=== PATIENT | male | born 1980 | race Caucasian/White ===

== ENCOUNTER 2017-08-13 06:05 | Day surgery (SDC) | payer OTHER ==
[~2017-08-13] VITALS: Ht 198.1 cm; Wt 136.1 kg
[~2017-08-13 06:05] MED LIST: BETA.05TCA TP; BUPR100ER PO; CEPH500 PO; CIPR500 PO; CRUTCH3 USE; CYCL10 PO; DIPH12.5EL; DOCU100 PO; HEMOTC PR; HYDACE25S PR; HYDACE5 PO; HYDCOR2.5C PR; LIND1TL TOP; MED MARIJUANA; META800 PO; METPRE4DP PO; METR500 PO; MULVITA PO; NAPR500 PO; NAPR550 PO; OMEP10ER PO; OMEP20ER PO; OXYACE5T PO; PRED10 PO; PROACE100 PO; Pepcid40 MG PO; Prednisone20 MG PO; RXOXYACE PO; TRIA80TC TOP; VITAMENS; [UNRECOGNIZED DRUG - REMARK]
== END 2017-08-13 09:50 | disposition home or self-care (01) ==
LOC: ORSCSDS 06:05
PROVIDERS: Orthopaedic Surgery
PROC: 0SBC4ZZ Excision of Right Knee Joint, Percutaneous Endoscopic Approach (ICD-10-PCS; principal; 2017-08-13 07:30)
PROC: 0SQC4ZZ Repair Right Knee Joint, Percutaneous Endoscopic Approach (ICD-10-PCS; principal; 2017-08-13 07:30)
DX: S83.281A Other tear of lateral meniscus, current injury, right knee, initial encounter (principal); M94.261 Chondromalacia, right knee; Z87.891 Personal history of nicotine dependence; E66.9 Obesity, unspecified; Z68.34 Body mass index [BMI] 34.0-34.9, adult
CPT/HCPCS: J0171; J0690; J1100; J1885; J2250; J2270; J2405; J2765; J3010; J7120

== ENCOUNTER 2017-10-13 14:15 | Emergency (ER) | payer OTHER ==
[~2017-10-13] VITALS: Ht 198.1 cm; Wt 136.1 kg
[2017-10-13] MEDS ORDERED: Sudogest60 MG PO (14:48)
[2017-10-13] MEDS ORDERED: Amoxicillin875 MG PO (14:48)
== END 2017-10-13 15:00 | disposition home or self-care (01) ==
LOC: ER 14:15
DX: J32.9 Chronic sinusitis, unspecified (principal); Z91.013 Allergy to seafood; K21.9 Gastro-esophageal reflux disease without esophagitis; F17.290 Nicotine dependence, other tobacco product, uncomplicated
CPT/HCPCS: 99283; J1100

== ENCOUNTER 2017-10-22 23:02 | Emergency (ER) | payer OTHER ==
[~2017-10-22] VITALS: Ht 198.1 cm; Wt 136.1 kg
[~2017-10-22 23:02] MED LIST changes: +Amoxicillin875 MG PO; +Sudogest60 MG PO
[2017-10-22 23:49] LABS: BASOPHILS ABSOLUTE AUTO 0.08 K/mm3 (0.00-0.23); BASOPHILS PERCENT AUTO 1 % (0-2); EOSINOPHILS ABSOLUTE AUTO 0.28 K/mm3 (0.00-0.68); EOSINOPHILS PERCENT AUTO 3 % (0-6); Hematocrit 39.6 % (37.0-53.0); Hemoglobin 13.2 g/dL (13.5-17.5); IMMATURE GRAN ABSOLUTE AUTO 0.03 K/mm3 (0.00-0.10); IMMATURE GRAN PERCENT AUTO 0 % (0-1); LYMPHOCYTES ABSOLUTE AUTO 2.86 K/mm3 (0.84-5.20); LYMPHOCYTES PERCENT AUTO 29 % (21-46); MONOCYTES PERCENT AUTO 8 % (4-13); Mean Corpuscular HGB 29.9 pg (26.0-34.0); Mean Corpuscular HGB Conc 33.3 g/dL (31.5-36.5); Mean Corpuscular Volume 90 fL (80-100); Mean Platelet Volume 9.7 fL (9.1-12.4); NEUTROPHILS ABSOLUTE AUTO 5.68 K/mm3 (1.96-9.15); NEUTROPHILS PERCENT AUTO 58 % (41-73); Platelet Count 234 K/mm3 (150-400); RDW Coefficient Variation 12.9 % (11.7-14.2); RDW Standard Deviation 42.8 fL (35.1-46.3); Red Blood Cell Count 4.42 M/mm3 (4.30-5.90); White Blood Cell Count 9.73 K/mm3 (4.00-11.30)
[2017-10-23 00:05] LABS: Alanine Aminotransfer (ALT/SGP 51 U/L (12-78); Albumin, Blood 3.7 g/dL (3.4-5.0); Albumin/Globulin Ratio 1.1 (0.8-1.8); Alk Phos 81 U/L (50-136); Anion Gap 9 mmol/L (6-16); Aspartate Aminotrans (AST/SGOT 26 U/L (12-37); Bilirubin, Total 0.4 mg/dL (0.1-1.0); Blood Urea Nitrogen 14 mg/dL (8-24); Bun/Creatinine Ratio 14.5 (12.0-20.0); CO2, Blood 25 mmol/L (21-32); Calcium, Blood 8.3 mg/dL (8.5-10.1); Chloride, Blood 107 mmol/L (98-108); Creatinine, Blood 0.97 mg/dL (0.60-1.20); Globulin, Blood 3.5 g/dL (2.2-4.0); Glomerular Filtration Rate >60 (60-); Glucose, Blood 90 mg/dL (70-99); Sodium, Blood 141 mmol/L (136-145); Total Protein, Blood 7.2 g/dL (6.4-8.2)
[2017-10-23] MEDS ORDERED: CEPH500 PO (00:20)
== END 2017-10-23 00:32 | disposition home or self-care (01) ==
LOC: ER 23:02
PROVIDERS: Emergency Medicine
DX: L03.116 Cellulitis of left lower limb (principal); Z91.013 Allergy to seafood; Z79.2 Long term (current) use of antibiotics; Z87.891 Personal history of nicotine dependence
CPT/HCPCS: 36415; 80053; 85025; 99283

== ENCOUNTER 2017-10-27 10:10 | Emergency (ER) | payer OTHER ==
[~2017-10-27] VITALS: Ht 198.1 cm; Wt 136.1 kg
[2017-10-27] MEDS ORDERED: Vibramycin100 MG PO (10:41)
== END 2017-10-27 10:49 | disposition home or self-care (01) ==
LOC: ER 10:10
DX: J01.90 Acute sinusitis, unspecified (principal); B96.89 Other specified bacterial agents as the cause of diseases classified elsewhere; Z91.013 Allergy to seafood; Z79.2 Long term (current) use of antibiotics; Z87.891 Personal history of nicotine dependence
CPT/HCPCS: 99282

== ENCOUNTER 2017-12-01 19:35 | Emergency (ER) | payer OTHER ==
[~2017-12-01] VITALS: Ht 198.1 cm; Wt 136.1 kg
[~2017-12-01 19:35] MED LIST changes: +Vibramycin100 MG PO
[2017-12-01] MEDS ORDERED: Vistaril25 MG PO (21:18)
== END 2017-12-01 21:31 | disposition home or self-care (01) ==
LOC: ER 19:35
DX: F41.9 Anxiety disorder, unspecified (principal); F43.9 Reaction to severe stress, unspecified; Z91.013 Allergy to seafood; Z87.891 Personal history of nicotine dependence
CPT/HCPCS: 99283

== ENCOUNTER 2019-01-30 17:48 | Emergency (ER) | payer OTHER ==
[~2019-01-30] VITALS: Ht 195.6 cm; Wt 108.9 kg
[~2019-01-30 17:48] MED LIST changes: +Vistaril25 MG PO
[2019-01-30] MEDS ORDERED: MUPIROCIN1 GM TOP (18:56)
== END 2019-01-30 19:18 | disposition home or self-care (01) ==
LOC: ER 17:48
DX: T25.222A Burn of second degree of left foot, initial encounter (principal); T25.221A Burn of second degree of right foot, initial encounter; T31.0 Burns involving less than 10% of body surface; L56.8 Other specified acute skin changes due to ultraviolet radiation; X58.XXXA Exposure to other specified factors, initial encounter; Z91.013 Allergy to seafood; F31.9 Bipolar disorder, unspecified; Z87.891 Personal history of nicotine dependence
CPT/HCPCS: 99283

== ENCOUNTER 2019-02-05 14:46 | Emergency (ER) | payer OTHER ==
[~2019-02-05] VITALS: Ht 195.6 cm; Wt 131.5 kg
[~2019-02-05 14:46] MED LIST changes: +MUPIROCIN1 GM TOP
[2019-02-05 15:34] LABS: BASOPHILS ABSOLUTE AUTO 0.06 K/mm3 (0.00-0.23); BASOPHILS PERCENT AUTO 1 % (0-2); EOSINOPHILS ABSOLUTE AUTO 0.16 K/mm3 (0.00-0.68); EOSINOPHILS PERCENT AUTO 2 % (0-6); Hematocrit 39.7 % (37.0-53.0); Hemoglobin 13.3 g/dL (13.5-17.5); IMMATURE GRAN ABSOLUTE AUTO 0.01 K/mm3 (0.00-0.10); IMMATURE GRAN PERCENT AUTO 0 % (0-1); LYMPHOCYTES ABSOLUTE AUTO 2.54 K/mm3 (0.84-5.20); LYMPHOCYTES PERCENT AUTO 30 % (21-46); MONOCYTES ABSOLUTE AUTO 0.54 K/mm3 (0.16-1.47); MONOCYTES PERCENT AUTO 6 % (4-13); Mean Corpuscular HGB 30.5 pg (26.0-34.0); Mean Corpuscular HGB Conc 33.5 g/dL (31.5-36.5); Mean Corpuscular Volume 91 fL (80-100); Mean Platelet Volume 9.9 fL (9.1-12.4); NEUTROPHILS ABSOLUTE AUTO 5.11 K/mm3 (1.96-9.15); NEUTROPHILS PERCENT AUTO 61 % (41-73); Platelet Count 216 K/mm3 (150-400); RDW Coefficient Variation 12.8 % (11.7-14.2); RDW Standard Deviation 42.8 fL (35.1-46.3); Red Blood Cell Count 4.36 M/mm3 (4.30-5.90); White Blood Cell Count 8.42 K/mm3 (4.00-11.30)
[2019-02-05 15:54] LABS: Alanine Aminotransfer (ALT/SGP 32 U/L (12-78); Albumin, Blood 3.5 g/dL (3.4-5.0); Albumin/Globulin Ratio 1.1 (0.8-1.8); Alk Phos 69 U/L (50-136); Anion Gap 6 mmol/L (6-16); Aspartate Aminotrans (AST/SGOT 22 U/L (12-37); Bilirubin, Total 0.6 mg/dL (0.1-1.0); Blood Urea Nitrogen 17 mg/dL (8-24); CO2, Blood 27 mmol/L (21-32); Calcium, Blood 8.3 mg/dL (8.5-10.1); Chloride, Blood 108 mmol/L (98-108); Globulin, Blood 3.3 g/dL (2.2-4.0); Glomerular Filtration Rate >60 (60-); Glucose, Blood 96 mg/dL (70-99); Potassium, Blood 3.7 mmol/L (3.5-5.5); Sodium, Blood 141 mmol/L (136-145); Total Protein, Blood 6.8 g/dL (6.4-8.2)
[2019-02-05 16:24] LABS: Source, Urine Clean Catch
[2019-02-05 16:26] LABS: Bilirubin, Urine Neg (Neg); Blood, Urine Neg (Neg); Glucose Qualitative, Urine Neg (Neg); Ketones, Urine Neg (Neg); Leukocyte Esterase, Urine Neg (Neg); Nitrite, Urine Neg (Neg); Protein, Urine 1+ (Neg); Specific Gravity, Urine 1.025 (1.003-1.022); Urobilinogen, Urine NORM (Normal)
[2019-02-05 16:32] LABS: Appearance, Urine Clear (Clear); Color, Urine Yellow (P-Yellow)
[2019-02-05] MEDS ORDERED: Keflex500 MG PO (16:45)
[2019-02-05] MEDS ORDERED: Norco 5-325 Ta1 EACH PO (16:45)
== END 2019-02-05 17:18 | disposition home or self-care (01) ==
LOC: ER 14:46
PROVIDERS: Physician Assistant
DX: R23.8 Other skin changes (principal); R53.81 Other malaise; F41.9 Anxiety disorder, unspecified; F17.200 Nicotine dependence, unspecified, uncomplicated; Z91.013 Allergy to seafood
CPT/HCPCS: 36415; 80053; 85025; 93005; 93010; 99284-25

== ENCOUNTER 2022-06-26 13:12 | Emergency (ER) | payer OTHER ==
[~2022-06-26] VITALS: Ht 198.1 cm; Wt 129.3 kg
[~2022-06-26 13:12] MED LIST changes: +Keflex500 MG PO; +Norco 5-325 Ta1 EACH PO
[2022-06-26] MEDS ORDERED: Percocet 5-3251 EACH PO (15:29)
[2022-06-26] MEDS ORDERED: OXYACE7.5T PO (16:08)
[2022-06-27] MEDS ORDERED: Roxicodone5 MG PO (09:23)
== END 2022-06-26 15:40 | disposition home or self-care (01) ==
LOC: ER 13:12
DX: M25.512 Pain in left shoulder (principal); W11.XXXA Fall on and from ladder, initial encounter; Z91.013 Allergy to seafood; Z79.899 Other long term (current) drug therapy; Z87.891 Personal history of nicotine dependence
CPT/HCPCS: 73030; 99284-25; A9270

== ENCOUNTER 2022-09-16 09:48 | Day surgery (SDC) | payer OTHER ==
[~2022-09-16] VITALS: Ht 195.6 cm; Wt 131.7 kg
[~2022-09-16 09:48] MED LIST changes: +OXYACE7.5T PO; +Percocet 5-3251 EACH PO; +Roxicodone5 MG PO
--- NOTE | 2022-09-16 11:27 | NUR ---
09/16/22 1127 Nazia Marte 1118 VERIFIED CORRECT PT, PROCEEDURE, SITE AND ALLERGIES. PT ELECTED TO PROCEED WITH LEFT SHOULDER BLOCK. RELAXING MEDICATION PROVIDED BY DR. MOON. VS STABLE THROUGHOUT. PT TOLERATED WELL.
--- NOTE | 2022-09-16 12:10 | NUR ---
09/16/22 1210 Brandee Kim RASH FROM NIPPLE LINE TO CHIN NOTICED AFTER INTUBATION. RASH WAS SUBSIDING AT TIME OF INCISION
--- NOTE | 2022-09-16 15:41 | NUR ---
09/16/22 1541 Sheng Beard PT REPORTED 5/10 PAIN AT TIME OF DISCHARGE BUT DESCRIBED PAIN TOLERABLE AND EXPRESSED READINESS TO GO HOME. HE DENIED NAUSEA.
== END 2022-09-16 15:35 | disposition home or self-care (01) ==
LOC: ORSCSDS 09:48
PROVIDERS: Orthopaedic Surgery
PROC: 0RNK4ZZ Release Left Shoulder Joint, Percutaneous Endoscopic Approach (ICD-10-PCS; principal; 2022-09-16 11:00)
DX: M75.122 Complete rotator cuff tear or rupture of left shoulder, not specified as traumatic (principal); F17.210 Nicotine dependence, cigarettes, uncomplicated; E66.9 Obesity, unspecified; Z68.34 Body mass index [BMI] 34.0-34.9, adult
CPT/HCPCS: C1713; J0171; J0690; J1100; J1885; J2250; J2405; J2704; J2765; J3010; J7120

== ENCOUNTER 2023-05-14 08:43 | Emergency (ER) | payer OTHER ==
[~2023-05-14] VITALS: Ht 195.6 cm; Wt 127.0 kg
[2023-05-14 11:29] LABS: Source, Urine Clean Catch
[2023-05-14 11:38] LABS: Appearance, Urine Clear (Clear); Bilirubin, Urine Neg (Neg); Blood, Urine Neg (Neg); Color, Urine Yellow (P-Yellow); Glucose Qualitative, Urine Neg (Neg); Ketones, Urine Neg (Neg); Leukocyte Esterase, Urine Neg (Neg); Nitrite, Urine Neg (Neg); Protein, Urine Neg (Neg); Specific Gravity, Urine 1.015 (1.003-1.022); Urobilinogen, Urine NORM (Normal)
[2023-05-14 12:20] VITALS: BP 137/87
== END 2023-05-14 12:23 | disposition home or self-care (01) ==
LOC: ER 08:43
PROVIDERS: Student in an Organized Health Care Education/Training Program
DX: R35.0 Frequency of micturition (principal); Z91.013 Allergy to seafood; K21.9 Gastro-esophageal reflux disease without esophagitis; F17.200 Nicotine dependence, unspecified, uncomplicated
CPT/HCPCS: 51798; 81003; 99283

== ENCOUNTER 2023-05-25 08:35 | Emergency (ER) | payer OTHER ==
[~2023-05-25] VITALS: Ht 195.6 cm; Wt 127.0 kg
[2023-05-25 09:02] VITALS: BP 157/110
[2023-05-25] MEDS ORDERED: IBUP800 PO (09:23)
== END 2023-05-25 09:33 | disposition home or self-care (01) ==
LOC: ER 08:35
DX: S16.1XXA Strain of muscle, fascia and tendon at neck level, initial encounter (principal); S00.11XA Contusion of right eyelid and periocular area, initial encounter; M25.512 Pain in left shoulder; F17.200 Nicotine dependence, unspecified, uncomplicated; Z91.013 Allergy to seafood; W13.9XXA Fall from, out of or through building, not otherwise specified, initial encounter; Y93.89 Activity, other specified; Y99.0 Civilian activity done for income or pay
CPT/HCPCS: 99283

== ENCOUNTER 2024-01-21 22:43 | Emergency (ER) | payer OTHER ==
[~2024-01-21] VITALS: Ht 198.1 cm; Wt 129.3 kg
[~2024-01-21 22:43] MED LIST changes: +IBUP800 PO
[2024-01-21 22:51] VITALS: BP 174/89
[2024-01-21] MEDS ORDERED: Ketorolac Tromethamine 15mg Vial IM ONE (23:35)
== END 2024-01-21 23:49 | disposition home or self-care (01) ==
LOC: ER 22:43
DX: M25.511 Pain in right shoulder (principal); Z91.013 Allergy to seafood; F17.200 Nicotine dependence, unspecified, uncomplicated
CPT/HCPCS: 73030; 96372; 99283-25; J1885